=== PATIENT | female | born 1950 | race Caucasian/White ===

== ENCOUNTER → 2021-08-19 | Outpatient (CLI) | payer MEDICARE, OTHER ==
[~2021-08-19] MED LIST: ASHWAGANDHA RO300 MG PO; BIOTIN10 MG PO; CALCIUM500 MG PO; CYANOCOBAL1000 MCG/1 IM; D3-200050 MCG PO; GLUCOSAMINE HC500 MG PO; LEVOTHYROXINE100 MC2 PO; LEXAPRO 10 MG T10 M2 PO; MAGNESIUM CARB500 GM PO; PROBIOTIC1 EAC7 PO; TOPROL XL25 MG PO; TUMERSAID TABL1 EACH PO; ULTRAM 50MG TAB50 MG PO; VITAMIN C500 M1 PO; ZINC50 M1 PO; ZOCOR 10 MG TAB10 M1 PO
== END | disposition home or self-care (01) ==
LOC: M.ULTRA 07:58
PROVIDERS: ATTEND Surgery
DX: N63.10 Unspecified lump in the right breast, unspecified quadrant (principal); R92.1 Mammographic calcification found on diagnostic imaging of breast; I10 Essential (primary) hypertension; E03.9 Hypothyroidism, unspecified; Z98.890 Other specified postprocedural states; Z79.899 Other long term (current) drug therapy

== ENCOUNTER → 2021-08-22 | Day surgery (SDC) | payer MEDICARE, OTHER ==
--- NOTE | 2021-08-22 09:19 | EKG ---
[place] [address] ELECTROCARDIOGRAM REPORT Name: CAITLIN CISNEROS Room: [facility]#: [id number] Admission: 08/22/21 Attend Phys: Theresa Sanchez, Discharge: Date of : 54 Date of Service: 08/22/21916 Report #: [id number] THIS REPORT FOR: //name// [facility] Test Date: 2021-08-22 Test Time: 09:17:57 Pat Name: CAITLIN CISNEROS Department: Room: Gender: Child Advocate: : 1950 Requested By: Theresa Sanchez Order Number: [id number] Reading MD: Garrett Lawson Measurements Intervals [place] Rate: 53 P: 22 RI: 139 QRS: -30 QRSD: 154 T: 48 QT: 482 QTc: 453 Interpretive Statements Sinus rhythm Left bundle branch block No previous ECG available for comparison Electronically Signed On 08-22-2021 9:19:34 CLINICAL BIOSTATISTICS DIRECTOR by Garrett Lawson [email or web address] <ELECTRONICALLY SIGNED> By: Garrett Lawson MD, [facility] 08/22/21918 6 6 Garrett Lawson MD, FAC /EPI
[2021-08-22 09:23] LABS: HEMATOCRIT 33.3 % (37.0-47.0); HEMOGLOBIN 10.4 gm/dL (12.0-15.0); MCH 22.5 pg (26.0-34.0); MCHC 31.3 g/dL (28.0-37.0); MCV 71.8 fL (80.0-100.0); MPV 7.5 fl. (7.2-11.1); RBC 4.64 mil/uL (4.20-5.00); WBC 7.2 thou/uL (4.0-11.0)
[2021-08-22 09:40] LABS: CALCIUM 8.9 mg/dL (8.5-10.1); CREATININE 0.8 mg/dL (0.6-1.3); POTASSIUM 4.4 mmol/L (3.5-5.1)
--- NOTE | 2021-08-22 15:44 | EKG ---
[place] [address] ELECTROCARDIOGRAM REPORT Name: CAITLIN CISNEROS Room: [facility]#: [id number] Admission: 08/22/21 Attend Phys: Theresa Sanchez, Discharge: Date of : 54 Date of Service: 08/22/21 1456 Report #: [id number] THIS REPORT FOR: //name// [facility] Test Date: 2021-08-22 Test Time: 14:56:24 Pat Name: CAITLIN CISNEROS Department: Room: Gender: F Industrial Relations Commissioner: ROGER : 1950 Requested By: Theresa Sanchez Order Number: [id number] Reading MD: Mayur Phillips Measurements Intervals [place] Rate: 72 P: 66 NM: 155 QRS: 38 QRSD: 98 T: 62 QT: 412 QTc: 451 Interpretive Statements Sinus rhythm Borderline low voltage, extremity leads Minimal ST depression, lateral leads Compared to ECG 08/22/2021 09:17:57 Left bundle-branch block no longer present Electronically Signed On 08-22-2021 15:44:04 SENIOR ESTIMATOR by Mayur Phillips [email or web address] <ELECTRONICALLY SIGNED> By: Mayur Phillips MD, [facility] 08/22/21 1544 1456 1456 Mayur Phillips MD, [facility] /EPI
--- NOTE | 2021-08-28 08:12 | OP ---
[address] [address] OPERATIVE REPORT Name: CAITLIN CISNEROS Room: [facility]#: [id number] Admission: 08/22/21 Attend Phys: Theresa Sanchez DO Discharge: Date of : 54 Report #: [id number] THIS REPORT FOR: cc: Brea Cho MD,Theresa Bethea MD, DO ~ cc: Brea Crane DATE OF SURGERY: 08/22/2021 PREOPERATIVE DIAGNOSIS: Right breast ductal carcinoma in situ. POSTOPERATIVE DIAGNOSIS: Right breast ductal carcinoma in situ. PROCEDURE PERFORMED: Right breast tagging-guided lumpectomy. SURGEON: Theresa Sanchez DO CO-SURGEON: Emmanuel Pablo, PGY5 SHELVER: MS Rory3 ANESTHESIA: General and local. ESTIMATED BLOOD LOSS: 5 mL. SPECIMEN: Right breast lumpectomy. COMPLICATIONS: None. FINDINGS: Normal rest anatomy with specimen confirmed to contain the clip by the Radiology department. 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 We discussed multiple options including breast-conserving therapy as well as mastectomy and she elected to proceed with breast-conserving therapy. After risks, benefits and alternatives were discussed at length with her, she agreed to proceed with surgery. DESCRIPTION OF PROCEDURE: The patient was taken to the operating room after consent was obtained and placed in the supine position. SCDs applied to bilateral lower extremities. The patient was safety belted to the bed. Two grams of Ancef given for surgical prophylaxis. The patient underwent general anesthesia by the Anesthesia team without any complication. The patient's right breast was prepped and draped in the standard sterile [place] [address] OPERATIVE REPORT Name: CISNEROSCAITLIN Room: [facility]#: [id number] Admission: 08/22/21 Attend Phys: Theresa Sanchez DO Discharge: Date of : 54 Report #: [id number] performed to confirm patient and procedure. One probe was used to help localize our tag. After determination of the tag being in the outer quadrant of the right breast, we made a semilunar line incision with a 15 blade scalpel. Electrocautery was used for hemostasis and to dissect down to the breast tissue. Once breast tissue was encountered again, our probe was used to help localize our tag. A lumpectomy specimen was then carried out with electrocautery circumferentially to include the tag. Once the specimen was removed from the breast, again the probe was used to confirm that the tag was within the specimen. Hemostasis of the right breast cavity was ensured with electrocautery. The tag was sent to Radiology department to confirm tag placement. Once the tag was confirmed to be in the specimen, we performed a layered closure of the subcutaneous tissue using a 3-0 Vicryl. Skin was reapproximated with a running 4-0 Monocryl in subcuticular fashion. Sterile skin glue was applied. All needle, instrument and sponge counts were correct x 2 at the end of the case. The patient was then awoken from general anesthesia and transferred to PACU in stable condition. <ELECTRONICALLY SIGNED> By: Theresa Sanchez DO 08/28/21 0812 1031 1155Cmicah Sanchez DO /nt
--- NOTE | 2021-09-05 18:06 | PATH ---
[address] [address] PATHOLOGY RPT PROCEDURE Name: CAITLIN CISNEROS Room: [facility]#: [id number] Admission: 08/22/21 Date of : 54 Discharge: Report #: [id number] Path Case #: [id number] [facility] Accession Number: [id number] . 01 Material submitted: . breast - RIGHT LUMPECTOMY SHORT STITCH=SUPERIOR, LONG STITCH=LATERAL. Modifiers: right . 01 Clinical history: . LUMPECTOMY DUCTAL CARCINOMA RIGHT BREAST SHORT STITCH = SUPERIOR LONG STITCH = LATERAL COLLECTED: 1106 FORMALIN: 1123 . 02 Diagnosis: RIGHT LUMPECTOMY: - DUCTAL PAPILLOMA WITH INVOLVEMENT BY DUCTAL CARCINOMA IN SITU, INTERMEDIATE GRADE, SPANNING 1.5 mm, ADJACENT TO PRIOR BIOPSY CHANGES, WITH ALL SURGICAL MARGINS FREE OF INVOLVEMENT AND CLOSEST (POSTERIOR) LOCATED 1.8 MM AWAY. SEE COMMENT. . . CASE SUMMARY: (DCIS OF THE BREAST: Resection) Standard(s): AJCC-UICC 8 SPECIMEN Procedure ___ Lumpectomy Specimen Laterality ___ Right TUMOR +Tumor Site ___ Clock position ___ 9 o'clock ___ Distance from nipple: 3 cm (see comment) Histologic Type ___ Ductal carcinoma in situ Size (Extent) of DCIS ___ Estimated size (extent) of DCIS is at least: 1.5 mm +Architectural Patterns ___ Cribriform Nuclear Grade ___ Grade II (intermediate) Necrosis ___ Not identified +Microcalcifications ___ Present in non-neoplastic tissue ___ Other: Prominent medial [place] [address] PATHOLOGY RPT PROCEDURE Name: CISNEROSCAITLIN L Room: [facility].#: [id number] Admission: 08/22/21 Date of : 54 Discharge: Report #: [id number] Path Case #: [id number] MARGINS Margin Status ___ All margins negative for DCIS Distance from DCIS to Closest Margin ___ Exact distance: 1.8 mm Closest Margin to DCIS ___ Posterior REGIONAL LYMPH NODES Regional Lymph Node Status ___ Not applicable (no regional lymph nodes submitted or found) . PATHOLOGIC STAGE CLASSIFICATION (pTNM, AJCC 8TH EDITION) pT Category ___ pTis (DCIS): Ductal carcinoma in situ pN Category ___ pN not assigned (no nodes submitted or found) SPECIAL STUDIES +Breast Biomarker Testing Performed on Previous Biopsy ___ Estrogen Receptor (ER) +Estrogen Receptor (ER) Status ___ Positive +Percentage of Cells with Nuclear Positivity ___ 91-100% ___ Progesterone Receptor (PgR) +Progesterone Receptor (PgR) Status ___ Positive +Percentage of Cells with Nuclear Positivity# ___ 81-90% +Testing Performed on Case Number: [id number] (LUCIANO/db; 08/28/2021) LBQ 08/28/2021 1727 Local . 02 Comment: Recent prior right breast, 9:00, 3 cm from nipple, ultrasound guided core needle biopsy of a mass, showed ductal carcinoma in situ, cribriform type, grade 2 and spanning at least 5 mm in size ([facility] pathology report [id number]). The localization of the DCIS provided in the synoptic data is taken from this prior report. . Properly controlled immunohistochemical studies are performed on several blocks with results as follows, supporting the diagnosis: . A4: CK5/6 - Focal areas within papilloma negative Estrogen receptor - Focal areas within papilloma nuclear positive . A7: p63 - Highlights myoepithelial [place] [address] PATHOLOGY RPT PROCEDURE Name: CAITLIN CISNEROS [id number] Admission: 08/22/21 Date of : 54 Discharge: Report #: [id number] Path Case #: [id number] Smooth muscle myosin heavy chain - Highlights myoepithelial cells throughout papilloma CK5/6 - Focal areas within papilloma negative Estrogen receptor - Focal areas within papilloma negative . A4 and A7 reviewed with Dr. Valencia Lloyd and Dr. Reis on 08/28/2021 who agree with the diagnosis (LUCIANO/db; 08/28/2021) . 02 Addendum: . Special studies report received from [facility], [address] [place] [address], [address], [place], [address], on case [id number], labeled with their number [id number], dated 09/04/2021. . Breast Predictive/Prognostic Marker Analysis . . Specimen Site: Rt Breast, DCIS (Lumpectomy) Specimen ID #: [id number] . ER (Estrogen Receptor) Positive Percent: 100.00% Analysis: Manual Staining Intensity: Moderate to Strong Internal Control: Present and Positive . IN (Progesterone Receptor) Positive Percent: 95.00% Analysis: Manual Staining Intensity: Weak to Moderate Internal Control: Present and Positive . Time to Fixation (Cold Ischemic Time): 23 Minutes Duration of Fixation: 20 Hours, 27 Minutes Type of Fixative: 10% Neutral Buffered Formalin . at [facility]. Akiko Schultz M.D. Pathologist . Methodology: A rabbit monoclonal antibody (clone SP1) that recognized the Estrogen Receptor is used to perform immunohistochemistry on routinely fixed (formalin) paraffin embedded tissue on the [employer]. The specimen is processed using a secondary antibody-[place] [address] PATHOLOGY RPT PROCEDURE Name: CAITLIN CISNEROS [facility] [id number] Admission: 08/22/21 Date of : 54 Discharge: Report #: [id number] Path Case #: [id number] The percentage of stained tumor nuclei is determined either manually or by image analysis. This test is intended for in vitro diagnostic use. This test is used for clinical purposes. . A rabbit monoclonal antibody (clone 1E2) that recognized the Progesterone Receptor is used to perform immunohistochemistry on routinely fixed (formalin) paraffin embedded tissue on the [employer] software. The specimen is processed using a secondary antibody-HRP conjugate detection system. The percentage of stained tumor nuclei is determined either manually or by image analysis. This test is intended for in vitro diagnostic use. This test is used for clinical purposes. . Intended Use: This antibody is intended for in vitro diagnostic (IVD) use. Estrogen Receptor (ER) (SP1) is a rabbit monoclonal antibody (IgG) that is intended for the qualitative detection of estrogen receptor (ER) antigen in sections of formalin-fixed, paraffin-embedded tissue. ER is a rabbit monoclonal antibody that recognizes human estrogen receptor alpha. . This antibody is intended for in vitro diagnostic (IVD) use. Progesterone Receptor (IN) (1E2) is a rabbit monoclonal antibody (IgG) that is intended for the qualitative detection of progesterone receptor (IN) antigen in sections of formalin fixed, paraffin embedded tissue. IN is a rabbit monoclonal antibody that recognizes the A and B forms of the human progesterone receptor. . Disclaimer(s): This assay has not been validated on decalcified tissues. Results should be interpreted with caution if this specimen was decalcified given the likelihood of false negativity on decalcified specimens. . Any image(s) that accompany this report is/are a retail service representative image(s) only and should not be used to render a diagnosis. . This interpretation is contingent on the specimen and the clinical information received. . For any special tests/stains performed, known positive cells or tissues are tested with each marker and examined to ensure positivity. Positive and negative internal controls, if present, react appropriately. . This analysis is an adjunct to the evaluation of the referring physician and does not represent a final diagnosis. . The immunohistochemistry tests performed at [facility]. were validated on tissue fixed in 10% neutral buffered formalin. The performance characteristics of the tests performed on tissue processed in other fixatives [place] [address] PATHOLOGY RPT PROCEDURE Name: CAITLIN CISNEROS Room: [facility]#: [id number] Admission: 08/22/21 Date of : 54 Discharge: Report #: [id number] Path Case #: [id number] ER/IN ASCO/CAP guidelines require fixation in neutral buffered formalin for a minimum of 6 and a maximum of 72 hours. Fixation times less than 6 hours may not adequately preserve cell proteins. Fixation times longer than 72 hours may cause excess cross-linking of proteins reducing the antigen available for staining. Either scenario can cause reduced staining; hence false negative results are possible and should be considered for these situations. The time from biopsy/excision to fixation in formalin (cold ischemic time) must be less than 1 hour. Time to fixation (cold ischemic time) greater than 1 hour should be interpreted with caution. REF: Gm Joyner, et al. [place] Society of Clinical Oncology/College of [place] Pathologists Guideline Recommendations for Immunohistochemical Testing of Estrogen and Progesterone Receptors in Breast Cancer. J Clin Oncol. 2009December 18; 28(16): 9167-6955. . ER/PgR testing at [facility]. is performed in compliance with the ASCO/CAP Clinical Practice Guidelines. If the result for ER is less than 1% it is reported as Negative; if the ER result is 1-10% it is reported as Low Positive; if the ER result is greater than 10% it is reported as Positive. If the result for PgR is less than 1% it is reported as Negative; if the PgR result is equal to or greater than 1%, it is reported as Positive. . REFERENCE: Reshma ORDONEZ, Ar HENAO, Yariel M,et al. Estrogen and progesterone receptor testing in breast cancer. ASCO/CAP guideline update. Arch Pathol Lab Med. 2020;144:545-563. . Performing Labs: This Test was performed at [facility]. at [address] [place] [address]. . [facility] is a business unit of [employer]. a wholly-owned subsidiary of [employer]. . A complete copy of the report is on file. . Professional and Technical services performed by [employer]. at [address] [place] [address]. . (LUCIANO:amj 09/05/2021) . [facility]/09/05/2021 Addendum Electronically Signed by Tyrone Liang MD, Pathologist . 02 Electronically signed: . Tyrone Liang MD, Pathologist NPI- [id number] . 01 Gross description: [place] [address] PATHOLOGY RPT PROCEDURE Name: CISNEROSCAITLIN [facility] [id number] Admission: 08/22/21 Date of : 54 Discharge: Report #: [id number] Path Case #: [id number] Fixative: Formalin Labeled: Right lumpectomy, short = superior, long = lateral Specimen received: Right previously oriented lumpectomy specimen Oriented: A short double stitch designates the superior aspect, and a long double stitch designates the lateral aspect. The specimen has been previously compressed and as a result the orientation of surgical margins may be distorted. Dimensions: 5.3 cm from medial to lateral, 5.5 cm from superior from inferior, 1.7 cm from anterior to inferior Weight: 27 g . The specimen is inked as follows: superior-red inferior-green anterior-orange posterior-black lateral-yellow medial-blue Sectioned from: Superior to inferior Number of slices: 12 point . Lesion: 1.5 x 1.0 x 0.9 cm, ill-defined, irregularly shaped, chopra-white to pink, indurated Lesion location: Slices 4, 5 and 6 Lesion to margins: 1.0 cm to superior 2.5 cm to inferior 0.9 cm to anterior 0.2 cm to posterior 2.0 cm to lateral 1.8 cm to medial . Biopsy clip: not identified Radioactive seed: embedded in slice 7 Uninvolved breast parenchyma: Comprised 95% yellow lobulated adipose tissue, and 5% white fibrous tissue . [employer] Locator sections to include the entire lesion are submitted as follows: A1-A3 slice 1, superior margin, perpendicular, entirely A4 slice 4, lesion to include closest anterior and posterior margins A5 slice 4, closest lateral margin A6 slice 4, closest medial margin A7 slice 5, lesion A8 slice 6, lesion A9 slice 3, represented, adjacent to lesion A10 slice 7, represented, adjacent to lesion, to include radioactive seed bed A11-A13 slice 12, inferior margin, perpendicular, [place] [address] PATHOLOGY RPT PROCEDURE Name: CAITLIN CISNEROS Room: [facility]#: [id number] Admission: 08/22/21 Date of : 54 Discharge: Report #: [id number] Path Case #: [id number] . The specimen is removed from the patient at 1100 and placed in formalin at 1123 on 08/23/2021. The specimen is removed from formalin at 1950. The specimen is in formalin for greater than 6 hours and less than 72 hours. (J; 08/23/2021) JGG/JGG 08/28/2021 1219 Local . 02 Pathologist provided ICD-10: D24.1, D05.11 . 02 CPT . 510200, Y93022, I37446 Specimen Comment: A courtesy copy of this report has been sent to [phone], [phone] Specimen Comment: [id number] Specimen Comment: Report sent to / DR JEANMARIE MAHER Performed at: [address], [place] [id number] MD Kevin Clements MD Phone: [phone] [facility]formed at: [facility] [address], [place], [place] [id number] MD Tyrone Liang MD Phone: [phone]
== END | disposition home or self-care (01) ==
LOC: M.SUR 06:29
PROVIDERS: ATTEND Surgery
DX: D05.11 Intraductal carcinoma in situ of right breast (principal); Z98.890 Other specified postprocedural states; Z79.899 Other long term (current) drug therapy; Z20.822 Contact with and (suspected) exposure to COVID-19